=== PATIENT | female | born 1980 | race Hispanic/Latino ===

== ENCOUNTER 2018-06-11 21:25 | Emergency (ER) | payer SELFPAY ==
[~2018-06-11] VITALS: Ht 152.4 cm; Wt 86.3 kg
[~2018-06-11 21:25] MED LIST: ACETTAB3 OR; AMOXICILLIN500 MG OR; CIPRO500 MG OR; CITALOPRAM10 MG PO; LORTAB 5 OR; LORTAB5 PO; MELOXICAM7.5 MG OR; MOTRIN600 MG OR; PAXIL10 MG OR; PERCOCET 5/325M1 TAB OR; ULTRAM50 M1 PO; ULTRAM50 MG OR; ZOFRAN ODT4 MG PO; no home meds
[2018-06-11] MEDS ORDERED: SEROQUEL25 MG PO (21:42)
[2018-06-11] MEDS ORDERED: LAMICTAL ODT200 MG PO (21:42)
[2018-06-11 21:58] LABS: HEMATOCRIT 40.6 % (37.0-47.0); HEMOGLOBIN 14.4 g/dl (12.0-16.0); IMMATURE GRANULOCYTES 0.5 % (0.0-5.0); MEAN CELL VOLUME 96.9 fL CALC (80.0-100.0); MEAN CORPUSCULAR HGB 34.4 pG CALC (26.0-32.0); MEAN CORPUSCULAR HGB CONC 35.5 g/L CALC (32.0-36.0); NEUT# 4.59 thou/uL (2.00-7.15); RED BLOOD COUNT 4.19 mill/uL (4.20-5.60); RED CELL DISTRI WIDTH 12.3 % (11.5-15.5)
[2018-06-11 22:14] LABS: ALBUMIN 4.1 g/dL (3.2-5.0); ALKALINE PHOSPHATASE 53 u/l (38-126); ANION GAP 12 (6-22 (CALC)); BILIRUBIN, TOTAL 0.3 mg/dL (0.0-1.4); BUN 12 mg/dL (7-17); BUN/CREATININE RATIO 14 (12-20 (CALC)); CARBON DIOXIDE 28 mmol/l (22-30); CHLORIDE 105 mmol/l (95-108); CREATININE 0.8 mg/dL (0.5-1.0); GFR > 60 ML/MIN (>=60 (CALC)); GFR FOR AFR.AMER. > 60 ML/MIN (>=60 (CALC)); POTASSIUM 4.4 mmol/l (3.5-5.1); SGOT/AST 53 u/l (14-36); SODIUM 140 mmol/l (137-146); TOTAL PROTEIN 7.2 g/dL (6.3-8.2)
[2018-06-11 22:16] LABS: INFLUENZA A NONE DETECTED (NONE DETECT); INFLUENZA B NONE DETECTED (NONE DETECT)
[2018-06-11] MEDS ORDERED: ROBITUSSIN AC10 ML PO (22:47)
[2018-06-11] MEDS ORDERED: CEPHALEXIN500 M1 PO (22:47)
[2018-06-11] MEDS ORDERED: MEDDOSEPAK PO (22:47)
[2018-06-11 22:59] VITALS: BP 138/79
== END 2018-06-11 23:18 | disposition home or self-care (01) | DRG 153 ==
LOC: ED 21:25
PROVIDERS: Emergency Medicine
DX: J06.9 Acute upper respiratory infection, unspecified (principal); R05 Cough; R06.2 Wheezing; R09.89 Other specified symptoms and signs involving the circulatory and respiratory systems

== ENCOUNTER 2018-09-30 00:33 | Emergency (ER) | payer SELFPAY ==
[~2018-09-30] VITALS: Ht 152.4 cm; Wt 90.9 kg
[~2018-09-30 00:33] MED LIST changes: +CEPHALEXIN500 M1 PO; +LAMICTAL ODT200 MG PO; +MEDDOSEPAK PO; +ROBITUSSIN AC10 ML PO; +SEROQUEL25 MG PO
[2018-09-30] MEDS ORDERED: MOTRIN800 MG PO (01:08)
[2018-09-30] MEDS ORDERED: AMOXICILLIN500 MG PO (01:08)
[2018-09-30] MEDS ORDERED: TRAMADOL HCL50 MG PO (01:08)
[2018-09-30 01:22] VITALS: BP 146/99
== END 2018-09-30 01:40 | disposition home or self-care (01) | DRG 159 ==
LOC: ED 00:33
DX: K04.7 Periapical abscess without sinus (principal); K02.9 Dental caries, unspecified

== ENCOUNTER 2018-11-04 22:56 | Emergency (ER) | payer SELFPAY ==
[~2018-11-04] VITALS: Ht 152.4 cm; Wt 96.6 kg
[~2018-11-04 22:56] MED LIST changes: +AMOXICILLIN500 MG PO; +MOTRIN800 MG PO; +TRAMADOL HCL50 MG PO
[2018-11-04 23:47] LABS: URINE BILIRUBIN - DIPSTICK NEGATIVE (NEGATIVE); URINE BLOOD DIPSTICK TRACE-LYSED (NEGATIVE); URINE COLOR YELLOW; URINE GLUCOSE - DIPSTICK NEGATIVE (NEGATIVE); URINE KETONE NEGATIVE (NEGATIVE); URINE LEUK ESTERASE NEGATIVE (NEGATIVE); URINE NITRITE - DIPSTICK NEGATIVE (Negative); URINE PH 5.5 (4.5-8.0); URINE PROTEIN - DIPSTICK NEGATIVE (NEG-TRACE); URINE SPECIFIC GRAVITY >=1.030; URINE UROBILINOGEN - DIPSTICK 0.2 E.U./dL (0.2)
[2018-11-04 23:49] LABS: HEMATOCRIT 37.8 % (37.0-47.0); HEMOGLOBIN 13.4 g/dl (12.0-16.0); IMMATURE GRANULOCYTES 0.3 % (0.0-5.0); MEAN CELL VOLUME 95.9 fL CALC (80.0-100.0); MEAN CORPUSCULAR HGB CONC 35.4 g/L CALC (32.0-36.0); NEUT# 7.25 thou/uL (2.00-7.15); RED BLOOD COUNT 3.94 mill/uL (4.20-5.60); RED CELL DISTRI WIDTH 12.8 % (11.5-15.5)
[2018-11-05 00:03] LABS: ALBUMIN 4.5 g/dL (3.2-5.0); ALKALINE PHOSPHATASE 63 u/l (38-126); AMYLASE 55 u/l (30-110); ANION GAP 16 (6-22 (CALC)); BILIRUBIN, TOTAL 0.4 mg/dL (0.0-1.4); BUN 12 mg/dL (7-17); BUN/CREATININE RATIO 18 (12-20 (CALC)); CARBON DIOXIDE 23 mmol/l (22-30); CHLORIDE 107 mmol/l (95-108); CREATININE 0.7 mg/dL (0.5-1.0); GFR > 60 ML/MIN (>=60 (CALC)); GFR FOR AFR.AMER. > 60 ML/MIN (>=60 (CALC)); LIPASE 130 u/l (23-300); POTASSIUM 4.1 mmol/l (3.5-5.1); SGOT/AST 61 u/l (14-36); SODIUM 142 mmol/l (137-146); TOTAL PROTEIN 7.5 g/dL (6.3-8.2)
[2018-11-05 00:04] LABS: URINE BACTERIA MANY hpf; URINE RBC 0-2 RBC/hpf (0-5); URINE SQUAMOUS EPITHELIAL CELL MODERATE EPI/hpf (0-FEW)
[2018-11-05] MEDS ORDERED: ZOFRAN4 MG/TAB PO (00:55)
[2018-11-05 01:00] VITALS: BP 128/82
== END 2018-11-05 01:15 | disposition home or self-care (01) | DRG 392 ==
LOC: ED 22:56
PROVIDERS: Emergency Medicine
DX: R11.2 Nausea with vomiting, unspecified (principal); R19.7 Diarrhea, unspecified; R50.9 Fever, unspecified; B96.1 Klebsiella pneumoniae [K. pneumoniae] as the cause of diseases classified elsewhere; Z16.39 Resistance to other specified antimicrobial drug

== ENCOUNTER 2022-06-17 22:06 | Emergency (ER) | payer SELFPAY ==
[~2022-06-17] VITALS: Ht 152.4 cm; Wt 100.0 kg
[~2022-06-17 22:06] MED LIST changes: +ZOFRAN4 MG/TAB PO
[2022-06-17 22:37] VITALS: BP 136/75
[2022-06-17 22:41] VITALS: BP 143/84
[2022-06-17 22:45] VITALS: BP 128/80
[2022-06-17 23:00] VITALS: BP 130/88
[2022-06-17 23:08] LABS: HEMATOCRIT 39.5 % (37.0-47.0); IMMATURE GRANULOCYTES 0.3 % (0.0-5.0); MEAN CORPUSCULAR HGB 35.4 pG CALC (26.0-32.0); MEAN CORPUSCULAR HGB CONC 35.4 g/dL CAL (32.0-36.0); NEUT# 4.12 thou/uL (2.00-7.15); RED BLOOD COUNT 3.95 mill/uL (4.20-5.60); RED CELL DISTRI WIDTH 13.7 % (11.5-15.5)
[2022-06-17 23:13] LABS: HCG SERUM/URINE (NEG/POS) NEGATIVE (NEGATIVE)
[2022-06-17 23:15] VITALS: BP 128/80
[2022-06-17 23:45] VITALS: BP 122/81
[2022-06-18] VITALS: BP 117/76
[2022-06-18] MEDS ORDERED: TESSALON PERLE100 MG PO (00:11)
[2022-06-18 00:30] VITALS: BP 114/75
[2022-06-18 00:35] VITALS: BP 125/80
[2022-06-18 00:41] VITALS: BP 125/80
== END 2022-06-18 00:42 | disposition home or self-care (01) | DRG 153 ==
LOC: ED 22:06
PROVIDERS: Family Medicine
DX: J06.9 Acute upper respiratory infection, unspecified (principal); Z20.822 Contact with and (suspected) exposure to COVID-19; R05.9 Cough, unspecified; F31.9 Bipolar disorder, unspecified

== ENCOUNTER 2022-12-04 10:47 | Emergency (ER) | payer SELFPAY ==
[~2022-12-04] VITALS: Ht 152.4 cm; Wt 94.0 kg
[~2022-12-04 10:47] MED LIST changes: +TESSALON PERLE100 MG PO
[2022-12-04 11:20] VITALS: BP 148/86
[2022-12-04 11:31] VITALS: BP 124/75
[2022-12-04 11:34] LABS: BASO% 0.2 % (0-3); EOS% 1.1 % (0-8); HEMATOCRIT 40.5 % (37.0-47.0); HEMOGLOBIN 14.3 g/dl (12.0-16.0); IMMATURE GRANULOCYTES 0.2 % (0.0-5.0); LYMPH% 37.9 % (15-41); MEAN CELL VOLUME 97.8 fL CALC (80.0-100.0); MEAN CORPUSCULAR HGB 34.5 pG CALC (26.0-32.0); MEAN CORPUSCULAR HGB CONC 35.3 g/dL CAL (32.0-36.0); MONO% 6.7 % (2-13); NEUT# 3.08 thou/uL (2.00-7.15); NEUT% 53.9 % (42-76); RED BLOOD COUNT 4.14 mill/uL (4.20-5.60); RED CELL DISTRI WIDTH 12.6 % (11.5-15.5)
[2022-12-04 11:50] LABS: ALBUMIN 4.1 g/dL (3.2-5.0); ALKALINE PHOSPHATASE 84 u/l (38-126); ANION GAP 12 (6-22 (CALC)); BUN 12 mg/dL (7-17); BUN/CREATININE RATIO 18 (12-20 (CALC)); CARBON DIOXIDE 23 mmol/l (22-30); CHLORIDE 105 mmol/l (95-108); CREATININE 0.6 mg/dL (0.5-1.0); GFR FOR AFR.AMER. > 60 ML/MIN (>=60 (CALC)); GFR OTHER RACES > 60 ML/MIN (>=60 (CALC)); SGOT/AST 74 u/l (14-36); SODIUM 135 mmol/l (137-146); TOTAL PROTEIN 7.4 g/dL (6.3-8.2)
[2022-12-04 11:54] LABS: BILIRUBIN, TOTAL 0.8 mg/dL (0.02-1.3)
[2022-12-04 12:01] VITALS: BP 132/69
[2022-12-04] MEDS ORDERED: METFORMIN HCL500 M1 PO (12:46)
[2022-12-04 13:36] VITALS: BP 132/69
[2022-12-04 13:42] LABS: URINE BILIRUBIN - DIPSTICK NEGATIVE (NEGATIVE); URINE BLOOD DIPSTICK NEGATIVE (NEGATIVE); URINE COLOR YELLOW; URINE GLUCOSE - DIPSTICK 500 mg/dL (NEGATIVE); URINE KETONE NEGATIVE (NEGATIVE); URINE LEUK ESTERASE NEGATIVE (NEGATIVE); URINE NITRITE - DIPSTICK NEGATIVE (Negative); URINE PROTEIN - DIPSTICK NEGATIVE (NEG-TRACE); URINE SPECIFIC GRAVITY 1.025
== END 2022-12-04 13:47 | disposition home or self-care (01) | DRG 639 ==
LOC: ED 10:47
PROVIDERS: Family Medicine
DX: E11.9 Type 2 diabetes mellitus without complications (principal); D35.2 Benign neoplasm of pituitary gland; J45.909 Unspecified asthma, uncomplicated; F41.9 Anxiety disorder, unspecified; F32.A Depression, unspecified

== ENCOUNTER 2022-12-05 06:22 | Emergency (ER) | payer SELFPAY ==
[~2022-12-05] VITALS: Ht 152.4 cm; Wt 95.0 kg
[2022-12-05] VITALS (13 sets, daily range): BP systolic 87–136; BP diastolic 63–93
[~2022-12-05 06:22] MED LIST changes: +METFORMIN HCL500 M1 PO
== END 2022-12-05 09:26 | disposition home or self-care (01) | DRG 556 ==
LOC: ED 06:22
DX: M25.571 Pain in right ankle and joints of right foot (principal); J45.909 Unspecified asthma, uncomplicated; F31.9 Bipolar disorder, unspecified; F41.9 Anxiety disorder, unspecified

== ENCOUNTER 2023-03-22 22:47 | Emergency (ER) | payer SELFPAY ==
[~2023-03-22] VITALS: Ht 152.4 cm; Wt 97.0 kg
[2023-03-22 23:58] VITALS: BP 142/91
[2023-03-23 00:01] VITALS: BP 148/98
[2023-03-23 00:16] VITALS: BP 121/72
[2023-03-23 00:31] VITALS: BP 126/67
[2023-03-23 00:46] VITALS: BP 117/77
[2023-03-23 01:11] LABS: BASO% 0.2 % (0-3); EOS% 1.3 % (0-8); HEMATOCRIT 39.5 % (37.0-47.0); HEMOGLOBIN 13.7 g/dl (12.0-16.0); LYMPH% 34.8 % (15-41); MEAN CELL VOLUME 99.7 fL CALC (80.0-100.0); MEAN CORPUSCULAR HGB 34.6 pG CALC (26.0-32.0); MEAN CORPUSCULAR HGB CONC 34.7 g/dL CAL (32.0-36.0); MONO% 8.4 % (2-13); NEUT# 3.51 thou/uL (2.00-7.15); NEUT% 55.3 % (42-76); RED BLOOD COUNT 3.96 mill/uL (4.20-5.60); RED CELL DISTRI WIDTH 12.8 % (11.5-15.5)
[2023-03-23 01:25] LABS: ALBUMIN 3.5 g/dL (3.2-5.0); ALKALINE PHOSPHATASE 101 u/l (38-126); ANION GAP 9 (6-22 (CALC)); BILIRUBIN, TOTAL 0.9 mg/dL (0.02-1.3); BUN 14 mg/dL (7-17); BUN/CREATININE RATIO 19 (12-20 (CALC)); CARBON DIOXIDE 25 mmol/l (22-30); CHLORIDE 104 mmol/l (95-108); CPK 255 u/l (30-135); CREATININE 0.7 mg/dL (0.5-1.0); GFR FOR AFR.AMER. > 60 ML/MIN (>=60 (CALC)); GFR OTHER RACES > 60 ML/MIN (>=60 (CALC)); MAGNESIUM 1.7 mg/dL (1.6-2.3); POTASSIUM 3.9 mmol/l (3.5-5.1); SGOT/AST 85 u/l (14-36); SODIUM 135 mmol/l (137-146); TOTAL PROTEIN 6.8 g/dL (6.3-8.2)
[2023-03-23] MEDS ORDERED: METFORMIN HCL1000 MG PO (01:59)
[2023-03-23] MEDS ORDERED: BROMOCRIPTINE2.5 MG PO (01:59)
[2023-03-23 03:05] VITALS: BP 117/77
== END 2023-03-23 03:15 | disposition home or self-care (01) | DRG 645 ==
LOC: ED 22:47
PROVIDERS: Family Medicine
DX: D35.2 Benign neoplasm of pituitary gland (principal); E11.9 Type 2 diabetes mellitus without complications; F41.9 Anxiety disorder, unspecified; F31.9 Bipolar disorder, unspecified; T50.916A Underdosing of multiple unspecified drugs, medicaments and biological substances, initial encounter; Z91.128 Patient's intentional underdosing of medication regimen for other reason; J45.909 Unspecified asthma, uncomplicated

== ENCOUNTER 2023-07-06 17:24 | Emergency (ER) | payer SELFPAY ==
[~2023-07-06] VITALS: Ht 152.4 cm; Wt 98.8 kg
[2023-07-06] VITALS (10 sets, daily range): BP systolic 106–146; BP diastolic 72–98
[~2023-07-06 17:24] MED LIST changes: +BROMOCRIPTINE2.5 MG PO; +METFORMIN HCL1000 MG PO
[2023-07-06 18:31] LABS: BASO% 0.3 % (0-3); EOS% 0.6 % (0-8); HEMATOCRIT 39.1 % (37.0-47.0); HEMOGLOBIN 13.8 g/dl (12.0-16.0); IMMATURE GRANULOCYTES 0.1 % (0.0-5.0); LYMPH% 33.3 % (15-41); MEAN CELL VOLUME 98.7 fL CALC (80.0-100.0); MEAN CORPUSCULAR HGB 34.8 pG CALC (26.0-32.0); MEAN CORPUSCULAR HGB CONC 35.3 g/dL CAL (32.0-36.0); NEUT# 4.56 thou/uL (2.00-7.15); NEUT% 57.7 % (42-76); RED BLOOD COUNT 3.96 mill/uL (4.20-5.60)
[2023-07-06 19:00] LABS: ALBUMIN 3.8 g/dL (3.2-5.0); ALKALINE PHOSPHATASE 93 u/l (38-126); ANION GAP 12 (6-22 (CALC)); BILIRUBIN, TOTAL 1.2 mg/dL (0.02-1.3); BUN 14 mg/dL (7-17); BUN/CREATININE RATIO 21 (12-20 (CALC)); CARBON DIOXIDE 24 mmol/l (22-30); CHLORIDE 105 mmol/l (95-108); CREATININE 0.7 mg/dL (0.5-1.0); GFR FOR AFR.AMER. > 60 ML/MIN (>=60 (CALC)); GFR OTHER RACES > 60 ML/MIN (>=60 (CALC)); POTASSIUM 3.7 mmol/l (3.5-5.1); SGOT/AST 68 u/l (14-36); SODIUM 137 mmol/l (137-146); TOTAL PROTEIN 7.3 g/dL (6.3-8.2)
[2023-07-06 20:22] LABS: URINE BILIRUBIN - DIPSTICK Negative (NEGATIVE); URINE BLOOD DIPSTICK Moderate (NEGATIVE); URINE GLUCOSE - DIPSTICK 500 mg/dL (NEGATIVE); URINE KETONE Negative (NEGATIVE); URINE LEUK ESTERASE Negative (NEGATIVE); URINE PH 5.5 (4.5-8.0); URINE PROTEIN - DIPSTICK Negative (NEG-TRACE); URINE SPECIFIC GRAVITY 1.025
[2023-07-06 20:24] LABS: URINE COLOR Yellow; URINE NITRITE - DIPSTICK Positive (Negative)
[2023-07-06 20:29] LABS: URINE BACTERIA MANY hpf; URINE SQUAMOUS EPITHELIAL CELL FEW EPI/hpf (0-FEW)
[2023-07-06] MEDS ORDERED: BACTRIM DS1 TAB PO (20:35)
== END 2023-07-06 21:06 | disposition home or self-care (01) | DRG 103 ==
LOC: ED 17:24
PROVIDERS: Emergency Medicine
DX: R51.9 Headache, unspecified (principal); N39.0 Urinary tract infection, site not specified; E11.9 Type 2 diabetes mellitus without complications; B96.1 Klebsiella pneumoniae [K. pneumoniae] as the cause of diseases classified elsewhere

== ENCOUNTER 2023-07-22 08:20 | Emergency (ER) | payer SELFPAY ==
[~2023-07-22] VITALS: Ht 152.4 cm; Wt 95.0 kg
[~2023-07-22 08:20] MED LIST changes: +BACTRIM DS1 TAB PO
[2023-07-22] MEDS ORDERED: AMOX/K CLAV875 M1 PO (08:56)
[2023-07-22] MEDS ORDERED: VISTARIL25 MG PO (08:56)
[2023-07-22 10:09] VITALS: BP 143/99
[2023-07-24] MEDS ORDERED: VISTARIL25 MG PO (18:08)
== END 2023-07-22 10:20 | disposition home or self-care (01) | DRG 159 ==
LOC: ED 08:20
DX: K03.81 Cracked tooth (principal); F41.9 Anxiety disorder, unspecified; J45.909 Unspecified asthma, uncomplicated; F31.9 Bipolar disorder, unspecified; Z73.3 Stress, not elsewhere classified

== ENCOUNTER 2023-09-17 19:36 | Emergency (ER) | payer SELFPAY ==
[~2023-09-17] VITALS: Ht 152.4 cm; Wt 94.8 kg
[~2023-09-17 19:36] MED LIST changes: +AMOX/K CLAV875 M1 PO; +VISTARIL25 MG PO
[2023-09-17] MEDS ORDERED: SODIUM CHLORIDE 0.9% 1,000 ML IV STA (21:28)
[2023-09-17] MEDS ORDERED: KETOROLAC TROMETHAMINE 30 MG/ML SDV IV ONE (21:30)
[2023-09-17] MEDS ORDERED: LOPERAMIDE HCL 2 MG CAP PO ONE (21:30)
[2023-09-17] MEDS ORDERED: PROCHLORPERAZINE EDISYLATE 10 MG/2 ML SDV IV ONE (21:30)
[2023-09-17 21:50] LABS: BASO% 0.1 % (0-3); EOS% 0.4 % (0-8); HEMATOCRIT 41.9 % (37.0-47.0); HEMOGLOBIN 14.7 g/dl (12.0-16.0); IMMATURE GRANULOCYTES 0.1 % (0.0-5.0); MEAN CELL VOLUME 99.1 fL CALC (80.0-100.0); MEAN CORPUSCULAR HGB 34.8 pG CALC (26.0-32.0); MEAN CORPUSCULAR HGB CONC 35.1 g/dL CAL (32.0-36.0); MONO% 3.9 % (2-13); NEUT# 7.61 thou/uL (2.00-7.15); NEUT% 83.5 % (42-76); RED BLOOD COUNT 4.23 mill/uL (4.20-5.60); RED CELL DISTRI WIDTH 12.9 % (11.5-15.5)
[2023-09-17 22:05] LABS: ALBUMIN 3.9 g/dL (3.2-5.0); ALKALINE PHOSPHATASE 96 u/l (38-126); ANION GAP 9 (6-22 (CALC)); BILIRUBIN, TOTAL 1.3 mg/dL (0.02-1.3); BUN 14 mg/dL (7-17); BUN/CREATININE RATIO 23 (12-20 (CALC)); CARBON DIOXIDE 25 mmol/l (22-30); CHLORIDE 108 mmol/l (95-108); CREATININE 0.6 mg/dL (0.5-1.0); GFR FOR AFR.AMER. > 60 ML/MIN (>=60 (CALC)); GFR OTHER RACES > 60 ML/MIN (>=60 (CALC)); LIPASE 70 u/l (23-300); POTASSIUM 3.9 mmol/l (3.5-5.1); SGOT/AST 91 u/l (14-36); SODIUM 138 mmol/l (137-146); TOTAL PROTEIN 7.3 g/dL (6.3-8.2)
[2023-09-17 22:37] LABS: URINE BLOOD DIPSTICK Negative (NEGATIVE); URINE COLOR Yellow; URINE GLUCOSE - DIPSTICK 100 mg/dL (NEGATIVE); URINE KETONE Negative (NEGATIVE); URINE LEUK ESTERASE Negative (NEGATIVE); URINE NITRITE - DIPSTICK Negative (Negative); URINE PROTEIN - DIPSTICK Negative (NEG-TRACE); URINE UROBILINOGEN - DIPSTICK >=8.0 E.U./dL (0.2)
[2023-09-18 02:00] VITALS: BP 143/80
[2023-09-18] MEDS ORDERED: IMODIUM2 MG PO (03:27)
[2023-09-18] MEDS ORDERED: PROMETHAZINE HY25 M1 PO (03:27)
== END 2023-09-18 03:45 | disposition home or self-care (01) | DRG 392 ==
LOC: ED 19:36
PROVIDERS: Family Medicine
DX: A08.11 Acute gastroenteropathy due to Norwalk agent (principal); A00-B99 Certain infectious and parasitic diseases; E11.9 Type 2 diabetes mellitus without complications; F41.9 Anxiety disorder, unspecified; F31.9 Bipolar disorder, unspecified; J45.909 Unspecified asthma, uncomplicated; Z79.84 Long term (current) use of oral hypoglycemic drugs; Z20.822 Contact with and (suspected) exposure to COVID-19

== ENCOUNTER 2024-02-09 04:06 | Emergency (ER) | payer SELFPAY ==
[~2024-02-09] VITALS: Ht 152.4 cm; Wt 95.0 kg
[2024-02-09] VITALS (12 sets, daily range): BP systolic 119–153; BP diastolic 75–85
[~2024-02-09 04:06] MED LIST changes: +IMODIUM2 MG PO; +PROMETHAZINE HY25 M1 PO
[2024-02-09] MEDS ORDERED: GLYBURIDE5 M1 PO (04:28)
[2024-02-09] MEDS ORDERED: LEVOTHYROXIN25 MC1 PO (04:29)
[2024-02-09] MEDS ORDERED: INSULIN REGULAR (HUMAN) 100 UNIT/ML INJ IV ONE ×2 (04:30→06:30)
[2024-02-09 04:54] LABS: URINE BILIRUBIN - DIPSTICK Negative (NEGATIVE); URINE BLOOD DIPSTICK Trace-intact (NEGATIVE); URINE GLUCOSE - DIPSTICK 500 mg/dL (NEGATIVE); URINE KETONE Negative (NEGATIVE); URINE LEUK ESTERASE Negative (NEGATIVE); URINE NITRITE - DIPSTICK Negative (Negative); URINE PROTEIN - DIPSTICK Negative (NEG-TRACE); URINE SPECIFIC GRAVITY 1.015; URINE UROBILINOGEN - DIPSTICK 0.2 E.U./dL (0.2)
[2024-02-09 04:55] LABS: BASO% 0.1 % (0-3); HEMATOCRIT 40.2 % (37.0-47.0); HEMOGLOBIN 14.2 g/dl (12.0-16.0); IMMATURE GRANULOCYTES 0.3 % (0.0-5.0); LYMPH% 16.1 % (15-41); MEAN CELL VOLUME 99.5 fL CALC (80.0-100.0); MEAN CORPUSCULAR HGB 35.1 pG CALC (26.0-32.0); MEAN CORPUSCULAR HGB CONC 35.3 g/dL CAL (32.0-36.0); MONO% 1.8 % (2-13); NEUT# 6.23 thou/uL (2.00-7.15); NEUT% 81.7 % (42-76); RED BLOOD COUNT 4.04 mill/uL (4.20-5.60); RED CELL DISTRI WIDTH 12.8 % (11.5-15.5)
[2024-02-09 05:00] LABS: URINE COLOR Yellow
[2024-02-09 05:04] LABS: ALBUMIN 4.2 g/dL (3.2-5.0); ALKALINE PHOSPHATASE 99 u/l (38-126); ANION GAP 12 (6-22 (CALC)); BILIRUBIN, TOTAL 0.9 mg/dL (0.02-1.3); BUN 14 mg/dL (7-17); BUN/CREATININE RATIO 23 (12-20 (CALC)); CARBON DIOXIDE 21 mmol/l (22-30); CHLORIDE 107 mmol/l (95-108); CPK 301 u/l (30-135); CREATININE 0.6 mg/dL (0.5-1.0); ESTIMATED GFR 113 ML/MIN (>=90 (CALC)); LIPASE 128 u/l (23-300); MAGNESIUM 1.9 mg/dL (1.6-2.3); POTASSIUM 4.1 mmol/l (3.5-5.1); SGOT/AST 84 u/l (14-36); SODIUM 135 mmol/l (137-146); TOTAL PROTEIN 7.8 g/dL (6.3-8.2)
[2024-02-09 05:08] LABS: INTERNATIONAL NORMALIZED RATIO 1.1 RATIO (0.7-1.3)
[2024-02-09 05:09] LABS: PROTHROMBIN TIME 10.6 SECONDS (9.0-12.5)
[2024-02-09 05:25] LABS: BETA-HCG, QUANT(RESULT NUMBER) <2 mIU/mL
[2024-02-09 05:38] LABS: TSH, 3RD GENERATION 2.17 uIU/mL (0.47 - 4.68)
[2024-02-09] MEDS ORDERED: SODIUM CHLORIDE 0.9% 1,000 ML IV ONE (06:40)
== END 2024-02-09 07:03 | disposition home or self-care (01) | DRG 639 ==
LOC: ED 04:06
PROVIDERS: Internal Medicine
DX: E11.65 Type 2 diabetes mellitus with hyperglycemia (principal); J45.909 Unspecified asthma, uncomplicated; F31.9 Bipolar disorder, unspecified; F41.9 Anxiety disorder, unspecified; Z79.84 Long term (current) use of oral hypoglycemic drugs